=== PATIENT | female | born 1980 | race African-American/Black ===

== ENCOUNTER 2022-08-12 16:01 | Outpatient (CLI) | payer BC | END 2022-08-12 16:02 | disposition home or self-care (01) | LOC: SCSRAD 16:01 | PROVIDERS: ATTEND Family Medicine Sports Medicine | DX: M25.531 Pain in right wrist (principal) ==

== ENCOUNTER 2024-06-04 16:39 | Emergency (ER) | payer BC, OTHER | END 2024-06-04 19:15 | disposition home or self-care (01) | LOC: ERS 16:39 | DX: S16.1XXA Strain of muscle, fascia and tendon at neck level, initial encounter (principal); M25.512 Pain in left shoulder; V89.2XXA Person injured in unspecified motor-vehicle accident, traffic, initial encounter | CPT/HCPCS: 72125 ==